=== PATIENT | female | born 1965 | race African-American/Black ===

== ENCOUNTER 2021-02-05 21:30 | Emergency (ER) | payer OTHER ==
[~2021-02-05] VITALS: Ht 170.2 cm; Wt 145.0 kg
[2021-02-05 22:00] VITALS: BP 154/109
[2021-02-05] MEDS ORDERED: MAGNESIUM/ALUMINUM HYDROXIDE/SIMETHICONE 30ML UDC PO ONE (22:30)
[2021-02-05] MEDS ORDERED: FAMOTIDINE 20MG TABLET PO ONE (22:30)
== END 2021-02-06 00:36 | disposition left against medical advice (07) ==
LOC: ER 22:06
DX: R10.13 Epigastric pain (principal); R11.10 Vomiting, unspecified; Z53.21 Procedure and treatment not carried out due to patient leaving prior to being seen by health care provider
CPT/HCPCS: 93005